=== PATIENT | female | born 1950 | race Caucasian/White ===

== ENCOUNTER 2017-10-19 13:15 | Outpatient (CLI) | payer MEDICARE, OTHER ==
--- NOTE | 2017-10-25 11:21 | Mammography Report ---
DIGITAL BILATERAL SCREENING MAMMOGRAM: 10/19/2017 CLINICAL INDICATION: A 67-year-old with family history of breast cancer, history of benign biopsies, for screening. TECHNIQUE: Routine CC and MLO projections were obtained of the breasts. Bilateral laterally exaggerated craniocaudal views. COMPARISON: 11/2013, 10/2012, 07/2011, 07/2010. REPORT: The breasts again demonstrate scattered fibroglandular densities bilaterally. No suspicious masses, clustered microcalcifications, or regions of architectural distortion are identified. Bilateral biopsy markers are stable in the upper outer posterior breasts. IMPRESSION: BENIGN FINDINGS RECOMMENDATIONS: Routine annual screening unless otherwise clinically indicated. BIRADS 2, benign findings. STANDARD QUALIFYING STATEMENTS: 1. This examination was reviewed with the aid of Computer-Aided Detection (CAD). 2. A negative or benign imaging report should not delay biopsy if clinically suspicious findings are present. Consider surgical consultation if warranted. More than 5% of cancers are not identified by imaging. 3. Dense breasts may obscure an underlying neoplasm. TD: 10/20/2017 15:52 DEVON
== END 2017-10-19 13:16 | disposition home or self-care (01) ==
LOC: DI.S 13:15
PROVIDERS: ATTEND Internal Medicine
DX: Z12.31 Encounter for screening mammogram for malignant neoplasm of breast (principal); Z80.3 Family history of malignant neoplasm of breast
CPT/HCPCS: 77067

== ENCOUNTER 2017-11-01 10:37 | Outpatient (CLI) | payer MEDICARE, OTHER ==
[2017-11-01 18:29] LABS: BASOPHILS # (AUTO) 0.1 10^3/uL (0.0-0.1); BASOPHILS % (AUTO) 1.3 %; EOSINOPHILS # (AUTO) 0.2 10^3/uL (0.0-0.7); EOSINOPHILS % (AUTO) 2.2 %; HCT - HEMATOCRIT 43.7 % (37.0-47.0); HGB - HEMOGLOBIN 14.6 g/dL (12.0-16.0); LYMPHOCYTES # (AUTO) 2.8 10^3/uL (1.5-3.5); LYMPHOCYTES % (AUTO) 36.2 %; MEAN CORPUSCULAR HEMOGLOBIN 30.8 pg (27.0-31.0); MEAN CORPUSCULAR HGB CONC 33.3 g/dL (32.0-36.0); MEAN CORPUSCULAR VOLUME 92.6 fL (81.0-99.0); MEAN PLATELET VOLUME 8.8 fL (7.9-10.8); MONOCYTES # (AUTO) 0.5 10^3/uL (0.0-1.0); MONOCYTES % (AUTO) 6.8 %; NEUTROPHILS # (AUTO) 4.2 10^3/uL (1.5-6.6); NEUTROPHILS % (AUTO) 53.5 %; NUCLEATED RED BLOOD CELLS AUTO 0.1 /100WBC; RED BLOOD COUNT 4.72 10^6/uL (4.20-5.40); RED CELL DISTRIBUTION WIDTH 13.8 % (12.0-15.0); UNCORRECTED WHITE BLOOD COUNT 7.9 x10^3/uL; WHITE BLOOD COUNT 7.9 x10^3/uL (4.8-10.8)
[2017-11-01 18:43] LABS: ALBUMIN/GLOBULIN RATIO 1.5 (1.0-2.2); BILIRUBIN,TOTAL 0.5 mg/dL (0.2-1.0); BUN - BLOOD UREA NITROGEN 12 mg/dL (6-20); CALCIUM 8.9 mg/dL (8.5-10.3); CARBON DIOXIDE - CO2 28 mmol/L (21-32); CHLORIDE 102 mmol/L (101-111); CHOL/HDL RATIO 3.6 (<4.4); CHOLESTEROL 280 mg/dL; CREATININE 0.6 mg/dL (0.4-1.0); GFR - MDRD 100 (>89); GLUCOSE 88 mg/dL (70-100); HDL CHOLESTEROL 78 mg/dL; LDL/HDL RATIO 2.2 (<4.4); SODIUM 137 mmol/L (135-145); TOTAL PROTEIN 6.6 g/dL (6.7-8.2); TRIGLYCERIDES 157 mg/dL; VLDL CHOLESTEROL 31 mg/dL
[2017-11-01 18:56] LABS: THYROID STIMULATING HORMONE 1.4 uIU/mL (0.34-5.60)
== END 2017-11-01 10:38 | disposition home or self-care (01) ==
LOC: LAB.F 10:37
PROVIDERS: ATTEND Internal Medicine Endocrinology, Diabetes & Metabolism
DX: R42 Dizziness and giddiness (principal); Z85.850 Personal history of malignant neoplasm of thyroid; E89.0 Postprocedural hypothyroidism; I10 Essential (primary) hypertension; Z79.899 Other long term (current) drug therapy; R30.0 Dysuria; Z87.820 Personal history of traumatic brain injury; M19.90 Unspecified osteoarthritis, unspecified site; E03.9 Hypothyroidism, unspecified; M85.80 Other specified disorders of bone density and structure, unspecified site; F41.9 Anxiety disorder, unspecified
CPT/HCPCS: 36415; 80053; 80061; 84439; 84443; 85025

== ENCOUNTER 2017-12-21 08:00 | Outpatient (CLI) | payer MEDICARE, OTHER ==
[2017-12-21 17:20] LABS: BASOPHILS # (AUTO) 0.1 10^3/uL (0.0-0.1); BASOPHILS % (AUTO) 1.1 %; EOSINOPHILS # (AUTO) 0.1 10^3/uL (0.0-0.7); EOSINOPHILS % (AUTO) 1.4 %; HGB - HEMOGLOBIN 14.5 g/dL (12.0-16.0); LYMPHOCYTES # (AUTO) 3.1 10^3/uL (1.5-3.5); LYMPHOCYTES % (AUTO) 41.8 %; MEAN CORPUSCULAR HEMOGLOBIN 30.3 pg (27.0-31.0); MEAN CORPUSCULAR HGB CONC 33.3 g/dL (32.0-36.0); MEAN PLATELET VOLUME 8.9 fL (7.9-10.8); MONOCYTES # (AUTO) 0.5 10^3/uL (0.0-1.0); MONOCYTES % (AUTO) 6.1 %; NEUTROPHILS # (AUTO) 3.7 10^3/uL (1.5-6.6); NEUTROPHILS % (AUTO) 49.6 %; PLT - PLATELET COUNT 335 10^3/uL (130-450); RED BLOOD COUNT 4.78 10^6/uL (4.20-5.40); RED CELL DISTRIBUTION WIDTH 13.8 % (12.0-15.0); WHITE BLOOD COUNT 7.4 x10^3/uL (4.8-10.8)
[2017-12-21 17:35] LABS: ALBUMIN 4.1 g/dL (3.2-5.5); ALBUMIN/GLOBULIN RATIO 1.6 (1.0-2.2); BILIRUBIN,TOTAL 0.7 mg/dL (0.2-1.0); CALCIUM 8.9 mg/dL (8.5-10.3); CREATININE 0.7 mg/dL (0.4-1.0); TOTAL PROTEIN 6.6 g/dL (6.7-8.2)
[2017-12-22 13:42] LABS: HEPATITIS B SURFACE ANTIGEN NON-REACTIVE (NON-REACTIVE)
[2017-12-22 13:43] LABS: HEPATITIS C ANTIBODY NON-REACTIVE (NON-REACTIVE)
== END 2017-12-21 08:01 | disposition home or self-care (01) ==
LOC: LAB.F 08:00
PROVIDERS: ATTEND Internal Medicine
DX: R53.83 Other fatigue (principal); K59.00 Constipation, unspecified; Z79.899 Other long term (current) drug therapy
CPT/HCPCS: 36415; 80053; 84443; 85025; 86308; 86317; 86704; 86803; 87340

== ENCOUNTER 2018-02-08 11:21 | Emergency (ER) | payer MEDICARE, OTHER ==
[2018-02-08] MEDS ORDERED: DEXAMETHASONE 10 MG/ML VIAL PO STA (12:04)
[2018-02-08] MEDS ORDERED: KETOROLAC 60 MG/2 ML VIAL IM STA (12:04)
--- NOTE | 2018-02-08 12:07 | ED Physician Documentation ---
PD HPI BACK PAIN - Stated complaint Stated Complaint: LT LEG/BACK PX - Chief complaint Chief Complaint: Back Pain - History obtained from History obtained from: Patient - History of Present Illness Timing - onset: Yesterday Timing - details: Still present Location: Lower, Left Quality: Pain, Similar to prior episodes Associated symptoms: No: Fever, Weakness, Numbness, Incontinent of urine Worsened by: Movement Contributing factors: Lifting, Twisting Similar symptoms before: Diagnosis ("frozen hip flexors") - Additional information Additional information: The patient is a 67-year-old female who presents with left lower back pain radiating down her left leg. Her pain started yesterday, and is worse today. She reports working in her yard 2 days ago pulling weeds and trimming shrubs. She denies fever, numbness or weakness, or urinary incontinence. She has a history of similar symptoms 2 or 3 years ago that was diagnosed as "frozen hip flexors." At that time she underwent physical therapy for several months. Review of Systems Constitutional: denies: Fever Nose: denies: Congestion Cardiac: denies: Chest pain / pressure Respiratory: denies: Dyspnea, Cough GI: denies: Abdominal Pain, Nausea, Vomiting : denies: Dysuria, Incontinent Skin: denies: Rash Musculoskeletal: reports: Back pain Neurologic: denies: Focal weakness, Numbness, Headache PD PAST MEDICAL HISTORY - Past Medical History Endocrine/Autoimmune: None - Present Medications Home Medications: Ambulatory Orders Medication Instructions Recorded Confirmed Cyclobenzaprine [Flexeril] 10 mg PO TID PRN #20 tablet 02/08/18 Estradiol 02/08/18 Fexofenadine HCl [Iva Allergy] 02/08/18 02/08/18 Fluticasone [Flonase] 02/08/18 HYDROcod/ACETAM 5/325 [[place] 5/325] 1 ea PO Q6H PRN #15 tablet 02/08/18 LORazepam [Ativan] 02/08/18 Levothyroxine [Synthroid] 02/08/18 Metoprolol Succinate 02/08/18 predniSONE [Prednisone] 30 mg PO DAILY #15 tablet 02/08/18 - Allergies Allergies/Adverse Reactions: Allergies Allergy/AdvReac Type Severity Reaction Status Date / Time Anesthetics - Amide Type Allergy Unknown Verified 02/08/18 11:32 Anesthetics - Aimee Type- Allergy Unknown Verified 02/08/18 11:32 Christopher - Living Situation Living Arrangement: reports: At home - Social History Does the pt smoke?: No PD ED PE NORMAL - Vitals Vital signs reviewed: Yes (Borderline hypertension initially.) - General General: Alert and oriented X 3, Well developed/nourished - HEENT HEENT: Atraumatic - Cardiac Cardiac: RRR, No murmur - Respiratory Respiratory: No respiratory distress, Clear bilaterally - Abdomen Abdomen: Soft, Non tender - Back Back: No CVA TTP, No spinal TTP, Other (There is tenderness to palpation in the left paralumbar musculature, and over the left sciatic notch. No tenderness over the spinous processes.) - Derm Derm: No rash - Extremities Extremities: No edema, No calf tenderness / cord, Other (Straight leg raise test is negative bilaterally.) - Neuro Neuro: Alert and oriented X 3, No motor deficit, No sensory deficit Results - Vitals Vitals: Oxygen O2 Source Room air PD MEDICAL DECISION MAKING - ED course Complexity details: reviewed results, re-evaluated patient, considered differential, d/w patient, d/w family ED course: The patient's presentation is most consistent with acute lumbar strain, most likely resulting from yardwork. Her presentation does not suggest epidural abscess, cauda equina syndrome, or spinal stenosis. Treatment in the emergency department included administration of dexamethasone 10 mg orally and ketorolac 60 mg IM. Her symptoms markedly improved with the above treatment. She is being discharged with prescriptions for Flexeril, prednisone, and Vicodin, 15 tablets. I discussed with her and her the expected course of illness, symptomatic treatment and outpatient follow-up, as well as potentially worrisome signs or symptoms that should prompt reevaluation in the emergency department. Departure - Departure Disposition: 01 Home, Self Care Clinical Impression: Lumbar strain Qualifiers: Encounter type: initial encounter Qualified Code(s): S39.012A - Strain of muscle, fascia and tendon of lower back, initial encounter Condition: Stable Instructions: ED Low Back Pain Injury Follow-Up: Mirna Carroll MD [Primary Care Provider] - Prescriptions: Cyclobenzaprine [Flexeril] 10 mg PO TID PRN #20 tablet PRN Reason: Spasms HYDROcod/ACETAM 5/325 [[place] 5/325] 1 ea PO Q6H PRN #15 tablet PRN Reason: Pain predniSONE [Prednisone] 30 mg PO DAILY #15 tablet Comments: Apply ice pack to your lower back intermittently for the next 3 or 4 days. He can take Flexeril as prescribed if needed for muscle spasms. Take prednisone daily for 5 days as prescribed. You can use Vicodin as prescribed if needed for pain. Let pain be her guide to activity level. Follow up with your primary physician within 2 weeks. Call to schedule appointment. Return to the emergency department if you develop increasing pain, urinary incontinence, numbness or weakness, or otherwise worsening symptoms. Discharge Date/Time: 02/08/18 13:40
[2018-02-08 13:06] VITALS: BP 125/63
== END 2018-02-08 13:40 | disposition home or self-care (01) ==
LOC: ED 11:21
DX: S39.012A Strain of muscle, fascia and tendon of lower back, initial encounter (principal); X50.9XXA Other and unspecified overexertion or strenuous movements or postures, initial encounter; Y93.H2 Activity, gardening and landscaping; Y92.096 Garden or yard of other non-institutional residence as the place of occurrence of the external cause
CPT/HCPCS: 96372; 99283

== ENCOUNTER 2018-10-15 09:12 | Day surgery (SDC) | payer MEDICARE, OTHER ==
[2018-10-15] MEDS ORDERED: LACTATED RINGERS 1,000 ML IV ONE (09:19)
[2018-10-15] MEDS ORDERED: MIDAZOLAM 2 MG/2 ML VIAL IVP ONE (10:43)
[2018-10-15] MEDS ORDERED: fentaNYL 250 MCG/5 ML VIAL IVP ONE (10:43)
[2018-10-15 11:47] VITALS: BP 115/63
== END 2018-10-15 09:13 | disposition home or self-care (01) ==
LOC: SDS 09:12
PROVIDERS: ATTEND Surgery
PROC: 0DBM8ZZ Excision of Descending Colon, Via Natural or Artificial Opening Endoscopic (ICD-10-PCS; principal; 2018-10-15 10:30)
DX: Z12.11 Encounter for screening for malignant neoplasm of colon (principal); D12.4 Benign neoplasm of descending colon; K57.30 Diverticulosis of large intestine without perforation or abscess without bleeding; K64.8 Other hemorrhoids; K59.09 Other constipation; Z80.0 Family history of malignant neoplasm of digestive organs; I10 Essential (primary) hypertension; Z87.891 Personal history of nicotine dependence
CPT/HCPCS: 45385; J3010; J7120

== ENCOUNTER 2018-11-12 13:55 | Outpatient (CLI) | payer MEDICARE, OTHER ==
--- NOTE | 2018-11-13 09:28 | Mammography Report ---
Reason: SCREENING BENY Procedure Date: 11/12/2018 Accession Number: [id number] / [id number] Procedure: KARON - Screening Mammo w/Dre CPT Code: FULL RESULT: EXAM: Screening Mammo w/Dre DATE: 11/12/2018 2:34 PM CLINICAL HISTORY: Screening encounter. History of early menses and biopsy in both breasts. Family history of breast cancer in a sister at the age of 67 as well as 3 aunts ranging in age from 50-80. TECHNIQUE: Bilateral CC and MLO views were obtained. COMPARISON: 10/19/2017 through 11/28/2013. FINDINGS: The breasts demonstrate scattered fibroglandular densities bilaterally. Bilateral biopsy clips are again seen, typically benign. No suspicious masses, clustered microcalcifications, or regions of architectural distortion are identified. IMPRESSION: Benign findings RECOMMENDATION: Routine annual screening unless otherwise clinically indicated. BIRADS CATEGORY 2: Benign findings STANDARD QUALIFYING STATEMENTS: 1. This examination was not reviewed with the aid of Computer-Aided Detection (CAD). 2. A negative or benign imaging report should not preclude biopsy if clinically suspicious findings are present. 3. Dense breasts may obscure an underlying neoplasm. 4. This examination was reviewed with the aid of 3D breast imaging (tomosynthesis).
== END 2018-11-12 13:56 | disposition home or self-care (01) ==
LOC: DI 13:55
DX: Z12.31 Encounter for screening mammogram for malignant neoplasm of breast (principal); Z80.3 Family history of malignant neoplasm of breast
CPT/HCPCS: 77063; 77067

== ENCOUNTER 2018-11-28 10:34 | Outpatient (CLI) | payer MEDICARE, OTHER ==
[2018-11-28 17:44] LABS: BASOPHILS # (AUTO) 0.1 10^3/uL (0.0-0.1); BASOPHILS % (AUTO) 1.1 %; EOSINOPHILS # (AUTO) 0.1 10^3/uL (0.0-0.7); EOSINOPHILS % (AUTO) 2.1 %; HGB - HEMOGLOBIN 15.4 g/dL (12.0-16.0); LYMPHOCYTES # (AUTO) 2.7 10^3/uL (1.5-3.5); LYMPHOCYTES % (AUTO) 41.8 %; MEAN CORPUSCULAR HGB CONC 33.3 g/dL (32.0-36.0); MEAN CORPUSCULAR VOLUME 93.1 fL (81.0-99.0); MEAN PLATELET VOLUME 8.9 fL (7.9-10.8); MONOCYTES # (AUTO) 0.4 10^3/uL (0.0-1.0); MONOCYTES % (AUTO) 6.6 %; NEUTROPHILS # (AUTO) 3.1 10^3/uL (1.5-6.6); NEUTROPHILS % (AUTO) 48.4 %; PLT - PLATELET COUNT 336 10^3/uL (130-450); RED BLOOD COUNT 4.96 10^6/uL (4.20-5.40); RED CELL DISTRIBUTION WIDTH 14.5 % (12.0-15.0); WHITE BLOOD COUNT 6.4 x10^3/uL (4.8-10.8)
[2018-11-28 17:55] LABS: BILIRUBIN,URINE NEGATIVE (NEGATIVE); GLUCOSE, URINE (UA) NEGATIVE (NEGATIVE); KETONES,URINE (UA) NEGATIVE (NEGATIVE); LEUKOCYTE ESTERASE, URINE NEGATIVE (NEGATIVE); NITRITE,URINE NEGATIVE (NEGATIVE); OCCULT BLOOD,URINE TRACE-LYSE (NEGATIVE); PH,URINE 5.5 PH (5.0-7.5); PROTEIN,URINE NEGATIVE (NEGATIVE); UROBILINOGEN,URINE 0.2 (NORMAL) E.U./dL (NORMAL)
[2018-11-28 17:56] LABS: CLARITY,URINE CLEAR (CLEAR)
[2018-11-28 18:02] LABS: ALBUMIN 4.1 g/dL (3.2-5.5); ALBUMIN/GLOBULIN RATIO 1.6 (1.0-2.2); ALKALINE PHOSPHATASE 50 IU/L (42-121); ALT ALANINE AMINOTRANSFERASE 16 IU/L (10-60); AST ASPARTATE AMINOTRANSFERASE 20 IU/L (10-42); BILIRUBIN,TOTAL 0.8 mg/dL (0.2-1.0); BUN - BLOOD UREA NITROGEN 11 mg/dL (6-20); CARBON DIOXIDE - CO2 27 mmol/L (21-32); CHLORIDE 102 mmol/L (101-111); CHOL/HDL RATIO 3.6 (<4.4); CHOLESTEROL 272 mg/dL; CREATININE 0.7 mg/dL (0.4-1.0); GFR - MDRD 83 (>89); GLUCOSE 89 mg/dL (70-100); HDL CHOLESTEROL 76 mg/dL; LDL CHOLESTEROL,CALCULATED 178 mg/dL; LDL/HDL RATIO 2.3 (<4.4); SODIUM 138 mmol/L (135-145); TOTAL PROTEIN 6.6 g/dL (6.7-8.2); VLDL CHOLESTEROL 18 mg/dL
== END 2018-11-28 10:35 | disposition home or self-care (01) ==
LOC: LAB.F 10:34
PROVIDERS: ATTEND Internal Medicine
DX: R39.89 Other symptoms and signs involving the genitourinary system (principal); R32 Unspecified urinary incontinence; I10 Essential (primary) hypertension; M19.90 Unspecified osteoarthritis, unspecified site; E06.3 Autoimmune thyroiditis; E03.9 Hypothyroidism, unspecified; M85.80 Other specified disorders of bone density and structure, unspecified site; F41.9 Anxiety disorder, unspecified; N95.1 Menopausal and female climacteric states; Z13.6 Encounter for screening for cardiovascular disorders; Z79.899 Other long term (current) drug therapy
CPT/HCPCS: 36415; 80053; 80061; 81001; 81003; 83721; 84443; 85025; 87086

== ENCOUNTER 2019-01-06 13:56 | Outpatient (CLI) | payer MEDICARE, OTHER ==
[2019-01-09 11:01] LABS: THYROGLOBULIN <0.1 ng/mL
== END 2019-01-06 13:57 | disposition home or self-care (01) ==
LOC: LAB 13:56
PROVIDERS: ATTEND Internal Medicine Endocrinology, Diabetes & Metabolism
DX: E89.0 Postprocedural hypothyroidism (principal)
CPT/HCPCS: 36415; 84432; 84443; 86800

== ENCOUNTER 2019-03-16 10:56 | Outpatient (CLI) | payer MEDICARE, OTHER ==
[2019-03-16 11:22] LABS: CREATININE 0.7 mg/dL (0.4-1.0)
[2019-03-16] MEDS ORDERED: IOVERSOL 320 100 ML VIAL IVP ONE ×2 (11:30→13:10)
[2019-03-16] MEDS ORDERED: IOVERSOL 320 50 ML VIAL ONE ×2 (11:31→12:03)
--- NOTE | 2019-03-17 04:07 | CT Report ---
Reason: LLQ PAIN Procedure Date: 03/16/2019 Accession Number: [id number] / [id number] Procedure: CT - Abdomen/Pelvis W CPT Code: FULL RESULT: EXAM: CT ABDOMEN AND PELVIS EXAM DATE: 03/16/2019 01:18 PM. CLINICAL HISTORY: Left lower quadrant abdominal pain. COMPARISONS: None. TECHNIQUE: Routine helical CT imaging was performed through the abdomen and pelvis. IV contrast: 90 mL Optiray 320. Enteric contrast: Present. Reconstructions: Coronal and sagittal. In accordance with CT protocol optimization, one or more of the following dose reduction techniques were utilized for this exam: automated exposure control, adjustment of mA and/or KV based on patient size, or use of iterative reconstructive technique. FINDINGS: ABDOMEN: Liver: No significant abnormality. Stomach/Distal Esophagus: No significant abnormality. Gallbladder: There is fundal adenomyomatosis. Bile Ducts: No significant abnormality. Pancreas: No significant abnormality. Spleen: No significant abnormality. Kidneys: No suspicious solid appearing lesion. No hydronephrosis. Adrenals: No significant abnormality. Bowel: No obstruction. Average to moderate fecal residual. Moderate sigmoid diverticulosis without acute diverticulitis. Appendix: The appendix could not be identified with certainty. However, there are no secondary signs of appendicitis demonstrated at this time. Lymph Nodes: No pathologically enlarged nodes. Vasculature: Normal caliber aorta. Fluid: No significant free fluid. Abdominal Wall: No significant abnormality. Other: No significant abnormality. PELVIS: Uterus and Ovaries: Absent uterus. The right ovary could not be identified with certainty. Within the left adnexa, there is a bilobed cystic structure measuring 1.7 x 4.0 cm (image 63 series 3). Bladder: There is a medium sized cystocele. Lymph Nodes: No pathologically enlarged nodes. Fluid: No significant free fluid. Other: None. BONES: No suspicious bony lesions. Mild right convex scoliosis noted. Moderate bilateral hip joint degenerative change. LOWER CHEST: No significant consolidation or effusion. IMPRESSION: 1. No acute abdominal or pelvic abnormality. 2. Moderate sigmoid diverticulosis without acute diverticulitis. Average to moderate retained fecal material. 3. Nonspecific 1.7 x 4.0 cm bilobed cystic structure within the left adnexa. Follow-up pelvic ultrasound recommended at 6 months. 4. Pelvic floor dysfunction with a medium sized cystocele. RADIA
== END 2019-03-16 10:57 | disposition home or self-care (01) ==
LOC: DI 10:56
PROVIDERS: ATTEND Internal Medicine
DX: K57.30 Diverticulosis of large intestine without perforation or abscess without bleeding (principal); N94.9 Unspecified condition associated with female genital organs and menstrual cycle; N81.10 Cystocele, unspecified
CPT/HCPCS: 36415; 74177; 82565; Q9967

== ENCOUNTER 2019-04-12 16:06 | Outpatient (CLI) | payer MEDICARE, OTHER ==
--- NOTE | 2019-04-13 14:14 | Ultrasound Report ---
Reason: BLADDER CYSTOCELE Procedure Date: 04/12/2019 Accession Number: [id number] / [id number] Procedure: US - Pelvic w/Transvaginal CPT Code: FULL RESULT: EXAM: PELVIC ULTRASOUND EXAM DATE: 04/12/2019 05:32 PM. CLINICAL HISTORY: Bladder cystocele. History of bilateral oophorectomy. COMPARISON: ABDOMEN/PELVIS W/ 03/16/2019 1:08 PM. TECHNIQUE: Realtime transabdominal pelvic scan performed to identify the uterus and adnexa and as an overview of other pelvic structures, followed by transvaginal scan to provide greater detail of the uterus and adnexa, with static image documentation. FINDINGS: Uterus: Surgically absent. Right Ovary: Ovary not seen. No adnexal abnormality. Limitation secondary to bowel gas. Left Ovary: Ovary not seen. Anechoic left adnexal cyst measuring 2.6 x 1.5 x 1.9 cm noted. Previously measuring 4 x 1.[address] Otherwise, no adnexal abnormality. Limitation secondary to bowel gas. Free Fluid: None. Other: None. IMPRESSION: 1. Status post hysterectomy and bilateral oophorectomy. No solid pelvic mass. 2. 2.6 cm left adnexal anechoic cyst without concerning features. Overall appearance is benign and may represent a paraovarian or inclusion cyst. No right adnexal abnormality. RADIA
== END 2019-04-12 16:07 | disposition home or self-care (01) ==
LOC: DI 16:06
PROVIDERS: ATTEND Internal Medicine
DX: N81.10 Cystocele, unspecified (principal); Q50.1 Developmental ovarian cyst
CPT/HCPCS: 76830; 76856

== ENCOUNTER 2019-12-24 15:42 | Outpatient (CLI) | payer MEDICARE, OTHER ==
--- NOTE | 2019-12-25 08:11 | Mammography Report ---
Reason: ROUTINE MAMMO Procedure Date: 12/24/2019 Accession Number: [id number] / [id number] Procedure: KARON - Screening Mammo w/Dre CPT Code: Final Report FULL RESULT: EXAM: Screening Mammo w/Dre DATE: 12/24/2019 4:15 PM CLINICAL HISTORY: Screening encounter. History of benign breast biopsy on both signs. History of early menses. Family history of breast cancer in a sister at the age of 68 and multiple second-degree relatives. TECHNIQUE: (B) - Bilateral CC and MLO views were obtained. COMPARISON: 11/12/2018 through 07/20/2010. PARENCHYMAL PATTERN: (A) - The breast(s) demonstrate(s) scattered fibroglandular densities. FINDINGS: Bilateral biopsy clips are unchanged. There are no suspicious masses, calcifications, or areas of distortion. IMPRESSION: Benign findings. BI-RADS category 2. RECOMMENDATION: (ANNUAL) - Recommend routine annual screening mammography. BI-RADS CATEGORY: (2) - Benign Findings. STANDARD QUALIFYING STATEMENTS: 1. This examination was not reviewed with the aid of Computer-Aided Detection (CAD). 2. A negative or benign imaging report should not preclude biopsy if clinically suspicious findings are present. 3. Dense breasts may obscure an underlying neoplasm. 4. This examination was reviewed with the aid of 3D breast imaging (tomosynthesis).
== END 2019-12-24 15:43 | disposition home or self-care (01) ==
LOC: DI 15:42
DX: Z12.31 Encounter for screening mammogram for malignant neoplasm of breast (principal); Z80.3 Family history of malignant neoplasm of breast
CPT/HCPCS: 77063; 77067

== ENCOUNTER 2020-01-24 12:56 | Outpatient (CLI) | payer MEDICARE, OTHER ==
--- NOTE | 2020-01-26 02:38 | Ultrasound Report ---
Reason: PELVIC PAIN Procedure Date: 01/24/2020 Accession Number: [id number] / [id number] Procedure: US - Pelvic w/Transvaginal CPT Code: Final Report FULL RESULT: EXAM: PELVIC ULTRASOUND EXAM DATE: 01/24/2020 01:13 PM. CLINICAL HISTORY: PELVIC PAIN. COMPARISON: PELVIC W/TRANSVAGINAL 04/12/2019 4:56 PM ABDOMEN/PELVIS W/ 03/16/2019 1:08 PM. TECHNIQUE: Realtime transabdominal pelvic scan performed to identify the uterus and adnexa and as an overview of other pelvic structures, followed by transvaginal scan to provide greater detail of the uterus and adnexa, with static image documentation. FINDINGS: Uterus: Surgically absent. Right Ovary: Surgically absent. Left Ovary: Surgically absent. Free Fluid: None. Other: 3.5 x 1.9 x 1.8 cm cyst in the lateral left adnexa, stable from previous CT. 9 mm heterogeneous nodule in the left side of the vaginal cuff. Correlation with direct visualization is recommended. IMPRESSION: Stable left adnexal cyst. 9 mm heterogeneous nodule in the left side of the vaginal cuff. Correlation with direct visualization is recommended. RADIA
== END 2020-01-24 12:57 | disposition home or self-care (01) ==
LOC: DI 12:56
PROVIDERS: ATTEND Obstetrics & Gynecology
DX: N94.89 Other specified conditions associated with female genital organs and menstrual cycle (principal)
CPT/HCPCS: 76830; 76856

== ENCOUNTER 2020-03-27 17:31 | Outpatient (CLI) | payer MEDICARE, OTHER ==
[2020-03-27 18:41] LABS: THYROID STIMULATING HORMONE 0.27 uIU/mL (0.34-5.60)
[2020-03-27 18:43] LABS: FREE T4 (FREE THYROXINE) 1.47 ng/dL (0.58-1.64)
== END 2020-03-27 17:32 | disposition home or self-care (01) ==
LOC: LAB 17:31
PROVIDERS: ATTEND Student in an Organized Health Care Education/Training Program
DX: E89.0 Postprocedural hypothyroidism (principal); Z85.850 Personal history of malignant neoplasm of thyroid
CPT/HCPCS: 36415; 84432; 84439; 84443; 86800

== ENCOUNTER 2020-06-19 16:24 | Outpatient (CLI) | payer MEDICARE, OTHER ==
--- NOTE | 2020-06-20 00:11 | Ultrasound Report ---
PROCEDURE: Pelvic w/Transvaginal INDICATIONS: HX OF OVARIAN CYST TECHNIQUE: Real-time scanning was performed of the pelvic organs, with image documentation. Additional endovagi nal scanning was necessary due to incomplete visualization of the adnexal and endometrial structures by transabdominal scanning. COMPARISON: Pelvic ultrasound dated 01/24/2028, CT abdomen/pelvis dated 03/16/2019. FINDINGS: Transabdominal scanning: Limited scanning through the kidneys shows no hydronephrosis. No pathologi c free abdominal or pelvic fluid. Endovaginal scanning: The surgical changes from hysterectomy and bilateral oophorectomy. A somewhat tubular left adnexal cy st measures up to 2.4 x 1.8 x 1.2 cm. Nonspecific solid appearing nodule in the vaginal cuff measures 1.4 cm, of uncertain etiology. Recomm end correlation with physical exam findings IMPRESSION: 1. Status post hysterectomy and bilateral oophorectomy. 2. Left adnexal cyst measures 2.4 x 1.8 x 1.2 cm, decreased in size when compared to the CT from 03/16. 3. Nonspecific nodule in the left vaginal cuff measures 1.4 cm, which measure slightly larger when co mpared to the ultrasound from 01/24/2020. Recommend correlation with physical exam findings. Reviewed by: Melvin Starr MD on 06/20/2020 12:10 AM PDT Approved by: Melvin Starr MD on 06/20/2020 12:10 AM PDT Station ID: [id number]
== END 2020-06-19 16:25 | disposition home or self-care (01) ==
LOC: DI 16:24
PROVIDERS: ATTEND Obstetrics & Gynecology
DX: N83.8 Other noninflammatory disorders of ovary, fallopian tube and broad ligament (principal); N89.8 Other specified noninflammatory disorders of vagina; Z87.42 Personal history of other diseases of the female genital tract; Z90.710 Acquired absence of both cervix and uterus; Z90.722 Acquired absence of ovaries, bilateral
CPT/HCPCS: 76830; 76856

== ENCOUNTER 2020-08-06 12:46 | Outpatient (CLI) | payer MEDICARE, OTHER ==
--- NOTE | 2020-08-06 13:41 | CT Report ---
PROCEDURE: Sinuses INDICATIONS: SINUSITIS, SCREENING FOR LUNG CA, HX SMOKING TECHNIQUE: Noncontrast 3.0 mm axial images acquired from the frontal sinuses to the mid-sella, with coronal and sagittal reformats. For radiation dose reduction, the following was used: automated exposure control , adjustment of mA and/or kV according to patient size. COMPARISON: None. FINDINGS: Image quality: Excellent. Maxillary Sinuses: No bony remodeling or destruction. Sinuses are clear. Ethmoid Air Cells: No bony remodeling or destruction. Sinuses are clear. Sphenoid Sinuses: No bony remodeling or destruction. Sinuses are clear. Frontal Sinuses: No bony remodeling or destruction. Sinuses are clear. Ostiomeatal Complexes: Ostiomeatal complexes are patent. No Ynes cells. Miscellaneous: Visualized intra-orbital contents are normal. No araceli bullosa. Mild rightward nasa l septal deviation. IMPRESSION: 1. Mild rightward nasal septum deviation. 2. No evidence of sinusitis. Reviewed by: Kerry Sagastume MD on 08/06/2020 1:39 PM PDT Approved by: Kerry Sagastume MD on 08/06/2020 1:39 PM PDT Station ID: [id number]
--- NOTE | 2020-08-06 16:08 | CT Report ---
PROCEDURE: Low Dose Lung Cancer Screen INDICATIONS: SINUSITIS, SCREENING FOR LUNG CA, HX SMOKING TECHNIQUE: Noncontrast low-dose 5 mm thick sections acquired from the pulmonary apices to the posterior costophr enic angles. 7 mm thick coronal and sagittal MIP reformats were then acquired. For radiation dose r eduction, the following was used: automated exposure control, adjustment of mA and/or kV according t o patient size. COMPARISON: None. FINDINGS: Image quality: Excellent. Lungs and pleura: Mild centrilobular emphysema, no evidence of pulmonary mass. Mediastinum: Heart size is normal. No pericardial effusion. No mediastinal adenopathy by size crit eria. Thoracic aorta and central pulmonary arteries are normal in size. Esophagus is normal in axel ceci. No hiatal hernia. Bones and chest wall: No suspicious bony lesions. No vertebral body compression fractures. No axil alan or supraclavicular adenopathy by size criteria. The thyroid is normal in size. Abdomen: Visualized upper abdomen solid organs and bowel loops appear normal in the absence of contr ast. IMPRESSION: Centrilobular emphysema is present, no early manifestation of underlying lung carcinoma is suspected. Lung RADS category 1, follow-up low-dose noncontrast CT scanning in one year is recommended. Reviewed by: Christian Call MD on 08/06/2020 4:06 PM PDT Approved by: Christian Call MD on 08/06/2020 4:06 PM PDT Station ID: [id number]
== END 2020-08-06 12:47 | disposition home or self-care (01) ==
LOC: DI 12:46
PROVIDERS: ATTEND Internal Medicine
DX: J01.90 Acute sinusitis, unspecified (principal); J43.2 Centrilobular emphysema; Z87.891 Personal history of nicotine dependence
CPT/HCPCS: 70486; G0297

== ENCOUNTER 2020-12-09 15:08 | Outpatient (CLI) | payer MEDICARE, OTHER ==
--- NOTE | 2020-12-10 08:17 | Mammography Report ---
BILATERAL DIGITAL SCREENING MAMMOGRAM 3D/2D: 12/09/2020 CLINICAL: Routine screening. Comparison is made to exams dated: 12/24/2019 mammogram, 11/12/2018 mammogram, and 10/19/2017 mammogram - [facility]. There are scattered fibroglandular elements in both breasts. There is a biopsy clip in both breasts. No significant masses, calcifications, or other findings are seen in either breast. There has been no significant interval change. IMPRESSION: NEGATIVE There is no mammographic evidence of malignancy. A 1 year screening mammogram is recommended. This exam was interpreted at Station ID: [id number]. NOTE: For mammograms, a report in lay terms will be sent to the patient. Approximately 15% of breast malignancies will not be visualized mammographically. In the management of a palpable breast mass, a negative mammogram must not discourage biopsy of a clinically suspicious lesion. Electronically Signed By: Melvin Starr M.D. ar/penrad:12/09/2020 16:01:09 ACR BI-RADS Category 1: Negative 3341F PARENCHYMAL PATTERN: (A) - The breast(s) demonstrate(s) scattered fibroglandular densities. BI-RADS CATEGORY: (1) - 1 RECOMMENDATION: (ANNUAL) - Recommend routine annual screening mammography. [id number] 1 year screening LATERALITY: (B)
== END 2020-12-09 15:09 | disposition home or self-care (01) ==
LOC: DI.S 15:08
PROVIDERS: ATTEND Obstetrics & Gynecology
DX: Z12.31 Encounter for screening mammogram for malignant neoplasm of breast (principal)

== ENCOUNTER 2021-06-03 17:21 | Outpatient (CLI) | payer MEDICARE, OTHER ==
[2021-06-03 17:46] LABS: BASOPHILS # (AUTO) 0.1 10^3/uL (0.0-0.1); BASOPHILS % (AUTO) 1.2 %; EOSINOPHILS # (AUTO) 0.1 10^3/uL (0.0-0.7); EOSINOPHILS % (AUTO) 1.3 %; HCT - HEMATOCRIT 45.3 % (37.0-47.0); HGB - HEMOGLOBIN 14.8 g/dL (12.0-16.0); LYMPHOCYTES # (AUTO) 2.9 10^3/uL (1.5-3.5); LYMPHOCYTES % (AUTO) 30.5 %; MEAN CORPUSCULAR HEMOGLOBIN 30.3 pg (27.0-31.0); MEAN CORPUSCULAR HGB CONC 32.7 g/dL (32.0-36.0); MEAN CORPUSCULAR VOLUME 92.8 fL (81.0-99.0); MEAN PLATELET VOLUME 10.3 fL (7.9-10.8); MONOCYTES # (AUTO) 0.7 10^3/uL (0.0-1.0); MONOCYTES % (AUTO) 7.3 %; NEUTROPHILS # (AUTO) 5.7 10^3/uL (1.5-6.6); NEUTROPHILS % (AUTO) 59.5 %; PLT - PLATELET COUNT 336 10^3/uL (130-450); RED BLOOD COUNT 4.88 10^6/uL (4.20-5.40); RED CELL DISTRIBUTION WIDTH 13.9 % (12.0-15.0); WHITE BLOOD COUNT 9.5 x10^3/uL (4.8-10.8)
[2021-06-03 18:04] LABS: ALBUMIN 4.2 g/dL (3.2-5.5); ALBUMIN/GLOBULIN RATIO 1.6 (1.0-2.2); ALKALINE PHOSPHATASE 57 IU/L (42-121); ALT ALANINE AMINOTRANSFERASE 14 IU/L (10-60); AST ASPARTATE AMINOTRANSFERASE 15 IU/L (10-42); BILIRUBIN,TOTAL 1.1 mg/dL (0.2-1.0); BUN - BLOOD UREA NITROGEN 12 mg/dL (6-20); CHOL/HDL RATIO 3.3 (<4.4); CHOLESTEROL 233 mg/dL; CREATININE 0.6 mg/dL (0.4-1.0); GFR - MDRD 99 (>89); HDL CHOLESTEROL 71 mg/dL; LDL CHOLESTEROL,CALCULATED 148 mg/dL; LDL/HDL RATIO 2.1 (<4.4); TOTAL PROTEIN 6.8 g/dL (6.7-8.2); TRIGLYCERIDES 69 mg/dL; VLDL CHOLESTEROL 14 mg/dL
[2021-06-03 18:47] LABS: CALCIUM 9.3 mg/dL (8.5-10.3); CARBON DIOXIDE - CO2 28 mmol/L (21-32); CHLORIDE 102 mmol/L (101-111); GLUCOSE 84 mg/dL (70-100); POTASSIUM 3.9 mmol/L (3.5-5.0); SODIUM 140 mmol/L (135-145)
== END 2021-06-03 17:22 | disposition home or self-care (01) ==
LOC: LAB 17:21
PROVIDERS: ATTEND Internal Medicine
DX: I10 Essential (primary) hypertension (principal); Z13.6 Encounter for screening for cardiovascular disorders; Z79.899 Other long term (current) drug therapy; G03.9 Meningitis, unspecified; M85.80 Other specified disorders of bone density and structure, unspecified site; M19.90 Unspecified osteoarthritis, unspecified site; J30.2 Other seasonal allergic rhinitis; J43.9 Emphysema, unspecified
CPT/HCPCS: 36415; 80053; 80061; 83721; 84443; 85025

== ENCOUNTER 2022-08-10 08:00 | Outpatient (CLI) | payer MEDICARE, OTHER | END 2022-08-10 23:59 | disposition home or self-care (01) | LOC: LAB.R 08:00 | PROVIDERS: ATTEND Internal Medicine | DX: E03.9 Hypothyroidism, unspecified (principal); F41.9 Anxiety disorder, unspecified; R53.83 Other fatigue; R68.89 Other general symptoms and signs; M79.605 Pain in left leg; Z80.3 Family history of malignant neoplasm of breast | CPT/HCPCS: 84443 ==

== ENCOUNTER 2022-08-10 10:18 | Outpatient (CLI) | payer MEDICARE, OTHER ==
--- NOTE | 2022-08-10 13:35 | XRAY Report ---
PROCEDURE: Tib/Fib LT INDICATIONS: PAIN IN LEFT LEG TECHNIQUE: 2 views of the tibia and fibula were acquired. COMPARISON: None FINDINGS: Bones: No acute fractures or dislocations. Tibial intramedullary juana with intact proximal and dista l transverse fixation screws. There is smooth bridging callus medial and lateral along the distal tib ia consistent with healed fracture. No fracture plane is visible. There is callus around the proximal fibula without visible fracture plane. Bone alignment is normal. No suspicious bony lesions. Soft tissues: No suspicious soft tissue calcifications or masses. IMPRESSION: 1. Intact tibial juana and fixation screws. 2. Healed tibial and fibular fracture. Reviewed by: Edita Villegas MD on 08/10/2022 1:34 PM PDT Approved by: Edita Villegas MD on 08/10/2022 1:34 PM PDT Station ID: [id number]
== END 2022-08-10 10:19 | disposition home or self-care (01) ==
LOC: DI 10:18
PROVIDERS: ATTEND Internal Medicine
DX: M79.662 Pain in left lower leg (principal); Z87.81 Personal history of (healed) traumatic fracture; E03.9 Hypothyroidism, unspecified; F41.9 Anxiety disorder, unspecified; R53.83 Other fatigue; R68.89 Other general symptoms and signs; Z80.3 Family history of malignant neoplasm of breast
CPT/HCPCS: 84443

== ENCOUNTER 2023-08-30 07:51 | Day surgery (SDC) | payer MEDICARE, OTHER ==
[2023-08-30] MEDS ORDERED: LACTATED RINGERS 1,000 ML IV ONE (07:58)
--- NOTE | 2023-08-30 08:29 | ANESTHESIA ---
Pre-Anesthesia VS, & Labs - Diagnosis screening - Procedure colonoscopy Vital Signs: Temp Pulse Resp BP Pulse Ox O2 Flow Rate 36.1 C L 85 13 160/73 H 99 08/30/23 08:13 08/30/23 08:13 08/30/23 08:13 08/30/23 08:13 08/30/23 08:13 Height: 5 ft 1 in Weight (kg): 67 kg Body Mass Index: 27.8 BMI Classification: Overweight - NPO Other (prep as directed) - Is Patient ?: No Home Medications and Allergies Levothyroxine [Synthroid] 125 mcg PO DAILY 02/08/18 Metoprolol Succinate 12.5 mg PO BID 02/08/18 estradioL [Estradiol] 1 mg PO DAILY PM 02/08/18 Allergies/Adverse Reactions: Allergies Allergy/AdvReac Type Severity Reaction Status Date / Time Anesthetics - Amide Type - Allergy Unknown Verified 08/29/23 13:31 Select A [Anesthetics - Amide Type] Anesthetics - Aimee Type- Allergy Unknown Verified 08/29/23 13:31 Parabens tetanus and diphtheria Allergy Unknown Verified 08/30/23 08:21 toxoids Anes History & Medical History - Anesthetic History Anesthesia Complications: reports: Other-see comment (atypical psudocholinesterase) - Medical History Cardiovascular: reports: Hypertension, High cholesterol Pulmonary: reports: None Gastrointestinal: reports: Colon polyps Urinary: reports: Frequency Neuro: reports: Head injury (2000, after fell on ice), Other Musculoskeletal: reports: Osteoarthritis, Rheumatoid arthritis Endocrine/Autoimmune: reports: None, HyPOthyroidism Skin: reports: None Smoking Status: Never smoker Psychosocial: reports: Alcohol (rare, minimal) - Surgical History General: reports: Appendectomy, Colonoscopy Gynecologic: reports: Hysterectomy, Other Exam General: Alert, Oriented x3 Dental: WNL Mouth Openin Fingerbreadth Neck Mobility: Normal Mallampati classification: III Thyromental Distance: greater than 6 cm Respiratory: Lungs clear Cardiovascular: Regular rate, Normal S1, Normal S2 Plan Anesthesia Type: Total IV Consent for Procedure(s) Verified and Reviewed: Yes Code Status: Attempt Resuscitation ASA classification: 2-Mild systemic disease Is this case an emergency?: No
[2023-08-30] MEDS ORDERED: PROPOFOL 500 MG/50 ML 500 MG/50 ML VIAL ONE (08:39)
[2023-08-30] MEDS ORDERED: MIDAZOLAM 2 MG/2 ML VIAL ONE (09:43)
[2023-08-30] MEDS ORDERED: LACTATED RINGERS 500 ML IV ONE (10:17)
[2023-08-30 10:25] VITALS: O2SAT 100
--- NOTE | 2023-08-30 10:57 | ANESTHESIA POST OP EVALUATION ---
Anesthesia Post Eval - Post Anesthesia Eval Vitals: Last Vital Signs Temp 36.2 C L 08/30/23 10:30 Pulse 68 08/30/23 10:30 Resp 16 08/30/23 10:30 BP 105/52 L 08/30/23 10:30 Pulse Ox 100 08/30/23 10:30 O2 Flow Rate CV Function Including HR & BP: Stable Pain Control: Satisfactory Nausea & Vomiting: Negative Mental Status: Baseline Respiratory Status: Airway Patent Hydration Status: Satisfactory Anesthesia Complications: None
[2023-08-30 11:11] VITALS: BP 117/54
== END 2023-08-30 07:52 | disposition home or self-care (01) ==
LOC: SDS 07:51
PROVIDERS: ATTEND Surgery
PROC: 0DBN8ZZ Excision of Sigmoid Colon, Via Natural or Artificial Opening Endoscopic (ICD-10-PCS; 2023-08-30)
PROC: 0DBP8ZZ Excision of Rectum, Via Natural or Artificial Opening Endoscopic (ICD-10-PCS; principal; 2023-08-30 09:15)
DX: Z12.11 Encounter for screening for malignant neoplasm of colon (principal); K63.5 Polyp of colon; K62.1 Rectal polyp; K57.30 Diverticulosis of large intestine without perforation or abscess without bleeding; Z87.891 Personal history of nicotine dependence; J43.9 Emphysema, unspecified; Z80.0 Family history of malignant neoplasm of digestive organs
CPT/HCPCS: 45380; J7120